=== PATIENT | female | born 1960 | race American Indian/Alaskan Native ===

== ENCOUNTER 2021-12-20 00:24 | Emergency (ER) | payer MEDICARE ==
[2021-12-20] MEDS ORDERED: ONDANSETRON 4 MG/2 ML INJ IM ONE (01:56)
[2021-12-20] MEDS ORDERED: MORPHINE 4 MG/1 ML INJ IM ONE (01:56)
--- NOTE | 2021-12-20 01:59 | Emergency Department Report ---
ED General Adult HPI - General Chief complaint: Extremity Injury, Lower Stated complaint: RT/LEG PAIN/POST SURGERY Time Seen by Provider: 12/20/21 01:19 Source: patient Mode of arrival: Ambulatory Limitations: No Limitations - History of Present Illness Initial comments: Patient is 61 years old female with history of end-stage renal disease on hemodialysis. Patient [place] the emergency room [place] evaluation of bilateral lower extremity pain. Patient stated that she had bilateral leg wound secondary to injury that happened 5 weeks ago. Patient stated that she was coming from [place] connecting into [place] and going to [place]. Patient denied any fever or chills. She also denied any nausea or vomiting. She stated that she had dialysis yesterday. - Related Data Allergies Allergy/AdvReac Type Severity Reaction Status Date / Time No Known Allergies Allergy Unverified 12/20/21 01:31 ED Review of Systems ROS: Stated complaint: RT/LEG PAIN/POST SURGERY Other details as noted in HPI Comment: All other systems reviewed and negative Constitutional: denies: chills, fever Respiratory: denies: cough, shortness of breath, SOB with exertion, SOB at rest, wheezing Gastrointestinal: denies: abdominal pain, nausea, vomiting, diarrhea, constipation, hematemesis Musculoskeletal: denies: back pain Neurological: denies: headache ED Past Medical Hx - Past Medical History Previous Medical History?: Yes Hx Hypertension: Yes Hx Renal Disease: Yes (On dialysis) - Surgical History Past Surgical History?: No - Social History Smoking Status: Current Every Day Smoker Substance Use Type: None ED Physical Exam - General Limitations: No Limitations General appearance: alert, in no apparent distress - Head Head exam: Present: atraumatic, normocephalic, normal inspection - Eye Eye exam: Present: normal appearance - ENT ENT exam: Present: normal exam, normal orophraynx, mucous membranes moist - Neck Neck exam: Present: normal inspection, full ROM. Absent: tenderness, meningismus - Respiratory Respiratory exam: Present: normal lung sounds bilaterally - Cardiovascular Cardiovascular Exam: Present: regular rate, normal rhythm, normal heart sounds - GI/Abdominal GI/Abdominal exam: Present: soft, normal bowel sounds. Absent: distended, tenderness, guarding, rebound, rigid, organomegaly, mass, bruit, pulsatile mass, hernia - Extremities Exam Extremities exam: Present: other (Bilateral posterior leg wound with greenish discharge.) - Back Exam Back exam: Present: normal inspection. Absent: CVA tenderness (R), CVA tenderness (L) - Neurological Exam Neurological exam: Present: alert, oriented X3 ED Course Vital Signs 12/20/21 01:20 Temperature 98 F Pulse Rate 114 H Respiratory 18 Rate Blood Pressure 120/54 O2 Sat by Pulse 99 Oximetry ED Medical Decision Making - Lab Data Result diagrams: 12/20/21 02:07 12/20/21 02:07 - Medical Decision Making Patient is 61 years old female with history of end-stage renal disease on hemodialysis. Patient brought to the emergency room [place] for evaluation of bilateral lower extremity pain. Patient stated that she had bilateral leg wound secondary to injury that happened 5 weeks ago. Patient stated that she was coming from [place] connecting into [place] and going to [place]. Patient denied any fever or chills. She also denied any nausea or vomiting. She stated that she had dialysis yesterday. I reviewed patient record that son have with him. Patient does have history of restless leg syndrome. Patient was taking Neurontin for that and he said that it helped a lot.. Patient received morphine and Zofran. Labs reviewed and showed leukocytosis is most likely wound infection. Patient started on Keflex and advised to follow-up with his primary care physician in the next 2 to 3 days and to return to the ER if she develop any symptoms. Critical care attestation.: If time is entered above; I have spent that time in minutes in the direct care of this critically ill patient, excluding procedure time. ED Disposition Clinical Impression: Acute leg pain, Restless leg syndrome, Wound infection Disposition: HOME / SELF CARE / HOMELESS Is pt being admited?: No Condition: Stable Instructions: Wound Infection, Restless Legs Syndrome Referrals: PRIMARY CARE, [Referring] - 3-5 Days
[2021-12-20 03:00] LABS: Basophils # (Auto) 0.1 K/mm3 (0.0-0.1); Basophils % (Auto) 0.7 % (0.0-1.8); Eosinophils # (Auto) 0.2 K/mm3 (0.0-0.4); Eosinophils % (Auto) 1.7 % (0.0-4.3); Hematocrit 35.1 % (30.3-42.9); Hemoglobin 11.1 gm/dl (10.1-14.3); Lymphocytes % (Auto) 15.3 % (13.4-35.0); Mean Corpuscular HGB Conc 32 % (30-34); Mean Corpuscular Volume 87 fl (79-97); Monocytes # (Auto) 1.6 K/mm3 (0.0-0.8); Monocytes % (Auto) 11.7 % (0.0-7.3); Platelet Count 327 K/mm3 (140-440); Red Blood Count 4.04 M/mm3 (3.65-5.03); Red Cell Distribution Width 15.8 % (13.2-15.2)
[2021-12-20 03:35] LABS: Calcium 8.6 mg/dL (8.4-10.2)
[2021-12-20] MEDS ORDERED: MORPHINE 4 MG/1 ML INJ ONE (04:26)
[2021-12-20] MEDS ORDERED: ONDANSETRON 4 MG/2 ML INJ ONE (04:27)
[2021-12-20 07:39] VITALS: BP 145/76
== END 2021-12-20 06:00 | disposition home or self-care (01) ==
LOC: ED 00:24
DX: G25.81 Restless legs syndrome (principal); L03.116 Cellulitis of left lower limb; L03.115 Cellulitis of right lower limb; I12.0 Hypertensive chronic kidney disease with stage 5 chronic kidney disease or end stage renal disease; N18.6 End stage renal disease; Z99.2 Dependence on renal dialysis; F17.200 Nicotine dependence, unspecified, uncomplicated; Z79.899 Other long term (current) drug therapy
CPT/HCPCS: 36415; 80048; 85025; 96372; 99283; J2270; J2405